=== PATIENT | male | born 1975 | race Two or more races ===

== ENCOUNTER 2018-11-26 07:31 | Day surgery (SDC) | payer OTHER ==
[~2018-11-26] VITALS: Ht 162.6 cm; Wt 87.1 kg
[2018-11-26] VITALS (9 sets, daily range): BP systolic 110–131; BP diastolic 78–84
[~2018-11-26 07:31] MED LIST: LR 1000ml 1,000 ML IVLG SCH
--- NOTE | 2018-11-26 07:47 | Short Stay Surgery H&P ---
History of Present Illness History of Present Illness Chief Complaint Abdominal pains/GERDs/rectal bleeding/history of Helicobacter Gastritis. HPI Mingo Del Castillo is a 43 year old male who was admitted on for Abdominal Pain/rectal bleeding/GERDs Patient History Allergies: Coded Allergies: No Known Allergies (Unverified , 11/25/18) PAST MEDICAL HISTORY: (1) Hypertension (2) Hyperlipidemia (3) History of lumbosacral spine surgery (4) History of appendectomy Review of Systems Cardiovascular: Reports: no symptoms Respiratory: Reports: no symptoms Skeletal: Reports: trauma Gastrointestinal: Reports: gastro esophageal reflux disease Genitourinary: Reports: no symptoms Endocrine: Reports: no symptoms Hematologic: Reports: no symptoms Physical Exam Skin: normal HENT: normal Heart: normal Lungs: normal Abdomen: abnormal Extremities: normal Genitourinary: normal Plan Plan of Care Upper and lower GI. Endoscopies with biopsy. Preop Interventions None. Summary of Findings See the reports. Attestation Are the patient's medical conditions optimized for surgery? Attestation Response: yes Rishi Lemos MD Nov 26, 2018 07:47
--- NOTE | 2018-11-26 07:48 | Pre-Procedure Note/Attestation ---
Pre-Procedure Note/Attestation Complete Prior to Procedure Planned Procedure: left Procedure Narrative: Examination of the upper and the lower GI. tract via endoscopy. Indications for Procedure Pre-Operative Diagnosis: R/O gastritis/peptic ulcer/hemorrhoids/colitis Attestation I attest that I discussed the nature of the procedure; its benefits; risks and complications; and alternatives (and the risks and benefits of such alternatives ), prior to the procedure, with the patient (or the patient's legal technical support representative). I attest that, if there was a reasonable possibility of needing a blood transfusion, the patient (or the patient's legal technical support representative) was given the [facility] standardized written summary, pursuant to the [place] Blood Safety Act ([place] Health and Safety Code # 1645, as amended). I attest that I re-evaluated the patient just prior to the surgery and that there has been no change in the patient's H&P, except as documented below: Rishi Lemos MD Nov 26, 2018 07:48
[2018-11-26] MEDS ORDERED: LR 1000ml 1,000 ML IVLG SCH (07:59)
[2018-11-26] MEDS ORDERED: Propofol 200mg/20ml IV ONE (08:00)
[2018-11-26] MEDS ORDERED: LR 1000ml ONE (08:00)
[2018-11-26] MEDS ORDERED: fentaNYL 100 mcg/2 mL IV PRN (08:00)
[2018-11-26] MEDS ORDERED: Lidocaine 1% MPF 10mg/ml 5ml ONE (08:00)
[2018-11-26] MEDS ORDERED: Atropine Inj 1mg/10ml Syr IV PRN (08:00)
[2018-11-26] MEDS ORDERED: Midazolam 2mg/2ml Inj IVP PRN (08:00)
[2018-11-26] MEDS ORDERED: DiphenhydrAMINE 50mg/ml Inj IVP PRN (08:00)
--- NOTE | 2018-11-26 08:03 | Anethesia Preoperative Eval ---
Anesthesia Pre-op PMH/ROS General Date of Evaluation: Nov 26, 2018 Time of Evaluation: 08:01 Anesthesiologist: jordon ASA Score: ASA 3 Mallampati Score Class I : Soft palate, uvula, fauces, pillars visible Class II: Soft palate, uvula, fauces visible Class III: Soft palate, base of uvula visible Class IV: Only hard plate visible Mallampati Classification: Class II Surgeon: naga Diagnosis: abdominal pain Surgical Procedure: egd/colonoscopy Anesthesia History: none Family History: no anesthesia problems Allergies: Coded Allergies: No Known Allergies (Unverified , 11/25/18) Medications: see eMAR Patient NPO?: Yes Past Medical History Cardiovascular: Reports: HTN, other - hyperlipidemia PSxH Narrative: lumbar spine sx, appendectomy Anesthesia Pre-op Phys. Exam Physician Exam Constitutional: NAD Neurologic: CN 2-12 intact Cardiovascular: RRR Respiratory: CTA Gastrointestinal: S/NT/ND Airway Exam Mallampati Score: Class II MO: full Neck: flexible TMD: 2fb ROM: limited Teeth: intact Anesthesia Pre-op A/P Risk Assessment & Plan Assessment: asa3 Plan: mac Status Change Before Surgery: No Pre-Antibiotics Drug: Charlene Garibay MD Nov 26, 2018 08:03
[2018-11-26] MEDS ORDERED: MELOXICAM15 MG PO (08:17)
[2018-11-26] MEDS ORDERED: ZYRTEC10 MG ORAL (08:17)
[2018-11-26] MEDS ORDERED: GABAPENTIN100 MG ORAL (08:17)
[2018-11-26] MEDS ORDERED: OMEPRAZOLE20 M2 ORAL (08:17)
[2018-11-26] MEDS ORDERED: FLUOXETINE HCL20 MG ORAL (08:17)
[2018-11-26] MEDS ORDERED: TIZANIDINE HCL4 MG ORAL (08:17)
[2018-11-26] MEDS ORDERED: HYDROMORPHONE HC4 M1 ORAL (08:17)
--- NOTE | 2018-11-26 08:50 | Endoscopy Procedure Note ---
Endoscopy Procedure Note General Indication for Procedure: Abdominal pains/GERDs/Rectal bleeding Procedures Performed: EGD - Small sliding Hiatal Hernia with mild gastritis. Biopsy obtained from mid gastric body area., colonoscopy - Minimal internal hermorrhoids. Mild colonic diverticulosis. Specimen: yes Pt Tolerated Procedure Well: Yes Anesthesia Anesthesiologist: Dr. Anton Anesthesia: moderate sedation Medications Medication Given: see anesthesia record Inserted Devices Implant(s) used?: No Quality Quality of Bowel Preparation: Excellent Did scope reach the cecum?: Yes Was there any complications?: No GI Core Measures 50 yrs or older w/o bx or poly: No 10yrs. F/U recommended: Yes If not recommended, why?: Med reason:<3 yrs.: System Reason:<3 yrs.: Rishi Lemos MD Nov 26, 2018 08:50
--- NOTE | 2018-11-26 08:51 | Discharge Instructions ---
Discharge Instructions Discharge Instructions Follow up with: Call docotor office to see him after 2 weeks follow up For Congestive Heart Failure Reminder Report to your physician any weight gain of 5 pounds or more in one week. Rishi Lemos MD Nov 26, 2018 08:51
--- NOTE | 2018-11-26 09:15 | Immediate Post-Op Evaluation ---
Immediate Post-Op Evalulation Immediate Post-Op Evalulation Procedure: egd/colonoscopy w/bx Date of Evaluation: Nov 26, 2018 Time of Evaluation: 09:08 IV Fluids: 325ml lr Blood Products: none Estimated Blood Loss: negligible Blood Pressure Systolic: 129 Blood Pressure Diastolic: 84 Pulse Rate: 60 Respiratory Rate: 18 O2 Sat by Pulse Oximetry: 98 Temperature (Fahrenheit): 97.6 Pain Score (1-10): 0 Nausea: No Vomiting: No Complications none Patient Status: awake, reacts, patent Hydration Status: adequate Drug: Charlene Garibay MD Nov 26, 2018 09:15
--- NOTE | 2018-11-26 09:17 | 48 Hour Post Anesthesia Eval ---
Post Anesthesia Evaluation Procedure: egd/colonoscopy w/bx Date of Evaluation: Nov 26, 2018 Time of Evaluation: 09:15 Blood Pressure Systolic: 121 0: 81 Pulse Rate: 61 Respiratory Rate: 18 Temperature (Fahrenheit): 97.3 O2 Sat by Pulse Oximetry: 98 Airway: patent Nausea: No Vomiting: No Pain Intensity: 0 Hydration Status: adequate Cardiopulmonary Status: stable Mental Status/LOC: patient returned to baseline Post-Anesthesia Complications: none Follow-up care needed: N/A Charlene Anton MD Nov 26, 2018 09:17
--- NOTE | 2018-11-26 09:45 | Operative Note - Dictated ---
DATE OF OPERATION: 11/26/2018 SURGEON: Rishi Lemos M.D. PROCEDURE: Total colonoscopy. PREOPERATIVE DIAGNOSES: 1. Abdominal pain. 2. Diarrhea. 3. Constipation. 4. Rectal bleeding. POSTOPERATIVE DIAGNOSES: 1. Evidence of minimal internal hemorrhoid. 2. Mild colonic diverticulosis, otherwise normal study up to the base of the cecum as examined. MEDICATIONS: Per Dr. Quiroga, anesthesiologist. INSTRUMENT: GIF Olympus video colonoscope. DESCRIPTION OF PROCEDURE: The patient after arriving in the endoscopy unit, was told about risks and benefits of the procedure, which he accepted and signed informed consent. At this time, he was put in the left lateral decubitus position and the scope gradually advanced into the anal area, which revealed evidence of minimal internal hemorrhoids, which were not of no great significance and were not friable and bleeding at this time. A retroflexion maneuver was applied here and the whole area of the rectum was examined in a closer fashion, which revealed no abnormalities. Subsequently, the scope was passed through the left descending colon reaching to the splenic flexure, transverse colon, and finally hepatic flexure and guided into the right colon all the way to the base of the cecum. During the examination, occasional rare diverticular lesion was noted of no great significance. There was no any evidence of inflammatory process, ulcerations, tumors, polyps, or strictures in the colon. Finally after reaching to the base of the cecum within 5 to 6 minutes, the scope was gradually pulled out and no other abnormalities were noted. The colon cleanup was excellent. The patient tolerated the procedure well and left the endoscopy room in a good condition. Said Jeni Lemos DR: PATIENCE JOB#: [id number] CC:
--- NOTE | 2018-11-26 09:45 | Operative Note - Dictated ---
DATE OF OPERATION: 11/26/2018 SURGEON: Rishi eLmos M.D. PROCEDURE: Esophagogastroduodenoscopy with biopsy. PREOPERATIVE DIAGNOSES: 1. Abdominal pain. 2. History of chronic gastroesophageal reflux. 3. Helicobacter pylori gastritis. POSTOPERATIVE DIAGNOSES: 1. A small sliding hiatal hernia. 2. Mild generalized gastritis. Biopsy was taken from mid gastric body. MEDICATION USED: Per Dr. Quiroga. INSTRUMENT: GIF Olympus upper GI video endoscope. DESCRIPTION OF PROCEDURE: The patient after arriving in the endoscopy unit, was told about risks and benefits of the procedure, which he accepted and signed informed consent. At this time, he was put in the left lateral decubitus position. After adequate IV sedation, the scope was gently passed through the cricopharyngeal area, was lodged into the upper esophagus, and gradually advanced towards gastroesophageal junction. The entire length of the esophagus looked normal. There was no any evidence of inflammatory process, ulceration, stricture, polyps, tumors, etc. GE junction also looked normal without any evidence of Loza's. However, there was evidence of a small sliding hiatal hernia. At this time, the scope was advanced into the stomach. Gastric cavity was distended with insufflation of air and gradually areas of the fundus and the body and the antrum were examined, which revealed basically mild gastritis with mild erythema, but no ulcers, tumors, polyps, or bleeding sites were noted. A retroflexion maneuver was also applied with the examination of GE junction in a closer fashion, which revealed no other abnormalities. At this time, one random biopsy from mid gastric body obtained and subsequently scope was passed through the pylorus. First and second portions of duodenum were found to be also completely within normal limits. Finally, the scope was pulled out. The procedure was terminated. The patient tolerated the procedure well. Rishi Lemos M.D. DR: PATIENCE JOB#: [id number] CC:
--- NOTE | 2018-11-26 10:15 | Pre-op HX & Phy Repo 2 SIG ---
DATE OF ADMISSION: 11/26/2018 HISTORY OF PRESENT ILLNESS: The patient is a 43-year-old gentleman who is being seen prior to undergoing the procedures of upper and lower GI endoscopic examination for which he has been scheduled to receive for evaluation of his gastrointestinal conditions that he has been reporting subsequent to his work injury. 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 He had injuries over his right shoulder along with lower spine area for which he received multiple medications and treatment in the past couple of years. Among his medications they have been nonsteroidal anti-inflammatory agents along with the strong narcotics. At this time, the patient is continuing to complain of having epigastric as well as generalized abdominal pain associated with heartburn. He reports to me that he occasionally does have nausea, but mostly he has periodic and intermittent constipation and diarrhea. The exact nature of the cause of this condition particularly over the problem of constipation and diarrhea is not clear as yet as he has been seen also by other gastroenterologists in recent past. He reports that spicy foods making him more troublesome as he also experiences food over his chest during the night. He has been treated in the past by medications such as Pepto-Bismol and omeprazole and Tums. He also complains of occasional having difficulty with swallowing, but it is not a major problem. He continues to have also rectal bleeding with a past history of possible diagnosis of hemorrhoids. It mostly gets worse when he is constipated. He denies any nausea or vomiting or having hematemesis or melena in the past. It is also important to mention that the patient has been diagnosed to have Helicobacter pylori gastritis by performance of in the past. However, recently as he did have a breath test for this bacteria, it was reported to be positive by Dr. Palomo, the nature of which is not clear as yet. Therefore, the patient has been scheduled to undergo the procedures of upper and lower GI endoscopy with performance of biopsies as needed from the stomach particularly to look for Helicobacter pylori status. PAST MEDICAL HISTORY: The patient has had history of hypertension and hyperlipidemia, but denies having any gallstones or pancreatitis, etc. PAST SURGICAL HISTORY: The patient has had surgery over his dorsolumbar area for the disc in 2018 and also has history of appendectomy. ALLERGIES: Nonsignificant. FAMILY HISTORY: The health of the mother is good and the father's health is not clear. The patient is and has normal children. HABITS: The applicant denies drinking alcohol or smoking cigarettes. MEDICATIONS: Currently is tizanidine 4 mg, hydromorphone 4 mg, gabapentin 200 mg, meloxicam 15 mg, omeprazole 20 mg, fluoxetine 20 mg, Metamucil, and Zyrtec 10 mg. REVIEW OF SYSTEMS: HEENT: Basically the applicant complains of occasional headaches and dizziness and some visual problems. Also, he has had cough during the night. RESPIRATORY: The applicant basically denies having any problems such as shortness of breath, chest pressure, or asthma. CARDIOVASCULAR: Nonsignificant. He denies any angina or palpitation, dysrhythmias. HEMATOLOGICAL: Nonsignificant. MUSCULOSKELETAL: The applicant does suffer from the pain over his lower back due to the injury in the past as I mentioned. GENITOURINARY: The patient complains of having dysuria and frequent urination. ENDOCRINOLOGY: Nonsignificant. PSYCHOLOGICAL: The patient also complains of having anxiety, distress and some depression due to the history of injury that he has suffered. PHYSICAL EXAMINATION: GENERAL: At this time reveals alert and well-oriented gentleman, does not seem to be in any acute distress. VITAL SIGNS: Temperature 97.7, pulse rate 69 per minute, respiratory rate 18 per minute, and blood pressure 131/81. Pulse oximetry 96% on room air. GENERAL: The patient looks well developed and nourished, also quite obese. HEENT: Normocephalic. Pupils are equal in size and reactive to light and accommodation. No visible jaundice. Buccal cavity, tongue midline, well hydrated. No ulcers. NECK: Supple. No JVD, thyromegaly, or adenopathy. CHEST: Clear to auscultation and percussion. No rales or rhonchi. HEART: S1, S2 normal. Regular rhythm. No gallops or murmur. ABDOMEN: Soft, but quite obese and somewhat distended. There is also areas of tenderness all over the abdomen particularly over the epigastric area. No hepatosplenomegaly. No palpable mass. EXTREMITIES: Within normal limits. No pretibial edema, cyanosis, or clubbing. CENTRAL NERVOUS SYSTEM: Grossly normal. PREOPERATIVE IMPRESSION: 1. Epigastric pain of uncertain etiology, rule out chronic gastroesophageal reflux with esophagitis, gastritis, peptic ulcer disease secondary to side effects of NSAID medications. 2. History of Helicobacter pylori gastritis, question of status. 3. History of generalized abdominal pain with intermittent diarrhea and constipation, rule out underlying irritable bowel syndrome versus colitis. 4. History of rectal bleeding of uncertain etiology, rule out hemorrhoids versus colitis. 5. Hypertension and hyperlipidemia. 6. Obesity. 7. History of bodily injury to spine and status post lumbar disc operation. RECOMMENDATION: At this time, the patient seems to be quite stable to undergo the procedure of upper and lower GI endoscopy procedures. He was mentioned the risks and benefits and understand it and he has signed the consent for this procedure. Said Jeni Lemos DR: GUY JOB#: [id number] CC:
== END 2018-11-26 10:20 | disposition home or self-care (01) ==
LOC: SUR 07:31
DX: K59.00 Constipation, unspecified (principal); R10.9 Unspecified abdominal pain; R19.7 Diarrhea, unspecified; K64.8 Other hemorrhoids; K57.90 Diverticulosis of intestine, part unspecified, without perforation or abscess without bleeding; K21.9 Gastro-esophageal reflux disease without esophagitis; K44.9 Diaphragmatic hernia without obstruction or gangrene; E66.9 Obesity, unspecified; I10 Essential (primary) hypertension; E78.5 Hyperlipidemia, unspecified; F41.9 Anxiety disorder, unspecified; F32.9 Major depressive disorder, single episode, unspecified; R30.0 Dysuria; Z79.899 Other long term (current) drug therapy; Z90.89 Acquired absence of other organs; Z68.33 Body mass index [BMI] 33.0-33.9, adult; K29.50 Unspecified chronic gastritis without bleeding
CPT/HCPCS: 43239; 45378; J2704; 94003; 94150